=== PATIENT | male | born 1980 | race Caucasian/White ===

== ENCOUNTER 2016-12-31 13:19 | Emergency (ER) | payer OTHER ==
[~2016-12-31] VITALS: Ht 175.3 cm; Wt 67.9 kg
[2016-12-31 13:22] VITALS: TEMP 36.6; Ht 175.3 cm; Wt 67.9 kg
[2016-12-31] MEDS ORDERED: TRAZ50TA35 PO (13:45)
[2016-12-31 14:45] LABS: HEMATOCRIT 41.7 % (42-52); MEAN CELL VOLUME 87.1 fL (80-100); MEAN CORPUSCULAR HEMOGLOBIN 29.9 pg (25-34); MEAN CORPUSCULAR HGB CONC 34.3 g/dl (32-36); MEAN PLATELET VOLUME 9.9 fL (7.4-10.4); PLATELET COUNT 207 K/uL (130-400); RED BLOOD COUNT 4.79 M/uL (4.7-6.1); WHITE BLOOD COUNT 9.97 K/uL (4.8-10.8)
[2016-12-31 15:05] LABS: CALCIUM 9.1 mg/dl (8.5-10.1); CREATININE 0.8 mg/dl (0.60-1.40); POTASSIUM 3.8 mmol/L (3.5-5.1)
[2016-12-31 15:15] LABS: ACETAMINOPHEN < 2 ug/ml (10-30); ALB/GLOB RATIO 1.2 (0.9-2); THYROID STIMULATING HORMONE 1.05 uIu/ml (0.300-4.500)
--- NOTE | 2016-12-31 15:28 | EMERGENCY ROOM VISIT NOTE ---
History Report prepared by Nathalia: Steph Soriano Under the Supervision of: Dr. Gregg Etienne M.D. First contact with patient: 13:50 Chief Complaint: MENTAL HEALTH EVALUATION Stated Complaint: MR History of Present Illness The patient is a 36 year old male who presents to the Emergency Room with complaints of needing a mental health evaluation. Per his mother, he was released from group home three months ago for terroristic threats. She states that he has been making statements about being in a suicide pact and that someone is telling him to commit suicide. She states he asked her if he should shoot the people she went to college with. She states he has also not been eating or sleeping regularly. The patient states that he feels fine and totally healthy. He denies being in any pain and denies thinking about suicide. He states that he sleeps fine. The patient states that he takes medications to help him sleep. The mother states that this has happened before and that he was admitted to [place]. Source of History: patient, parent History Limited By: [facility] Position: other (global) Quality: other (mental evaluation) Note: Per the patient's mother, the patient has not been eating or sleeping, and he has been having suicidal thoughts. The patient denies any suicidal thoughts or pain. Review of Systems Unattainable given the mental state. Past Medical & Surgical Medical Problems: (1) Psychiatric hospitalization Family History No pertinent family history Social History Smoking Status: Current Every Day Smoker Housing Status: lives with family Current/Historical Medications Scheduled Trazodone Hcl (Trazodone), 50 MG PO DAILY Allergies Coded Allergies: No Known Allergies (Unverified , 12/31/16) Physical Exam Vital Signs Date Time Temp Pulse Resp B/P Pulse Ox O2 Delivery O2 Flow Rate FiO2 12/31/16 19:01 106 18 150/93 97 Room Air 12/31/16 13:22 36.6 86 20 122/69 95 Room Air Physical Exam GENERAL: Patient is in no acute distress. HEENT: No acute trauma, normocephalic atraumatic, mucous membranes moist, no nasal congestion, no scleral icterus. NECK: No stridor, no adenopathy, no meningismus, trachea is midline. LUNGS: Clear to auscultation bilaterally, no wheeze, no rhonchi, breath sounds equal. HEART: Without murmurs gallops or rubs, regular rate and rhythm. ABDOMEN: Soft, nontender, bowel sounds positive, no hernias, no peritonitis. EXTREMITIES: No cyanosis or edema, full range of motion of all the joints without pain or difficulty, no signs for acute trauma. NEUROLOGIC: No acute motor or sensory deficits, no focal weakness. SKIN: No rash, no jaundice, no diaphoresis. PSYCHIATRIC: Cooperative, seems slightly manic, rambled speech and thoughts, inability to focus, possible hallucinations Medical Decision & Procedures Laboratory Results 12/31/16 14:25 12/31/16 14:25 Test 12/31/16 14:25 12/31/16 14:48 Red Blood Count 4.79 M/uL (4.7-6.1) Mean Corpuscular Volume 87.1 fL (80-100) Mean Corpuscular Hemoglobin 29.9 pg (25-34) Mean Corpuscular Hemoglobin Concent 34.3 g/dl (32-36) RDW Standard Deviation 43.5 fL (36.4-46.3) RDW Coefficient of Variation 13.6 % (11.5-14.5) Mean Platelet Volume 9.9 fL (7.4-10.4) Anion Gap 6.0 mmol/L (3-11) Est Creatinine Clear Calc Drug Dose 121.4 ml/min Estimated GFR () 132.3 Estimated GFR (Non- 114.1 BUN/Creatinine Ratio 18.0 (10-20) Calcium Level 9.1 mg/dl (8.5-10.1) Total Bilirubin 0.5 mg/dl (0.2-1) Aspartate Amino Transf (AST/SGOT) 34 U/L (15-37) Alanine Aminotransferase (ALT/SGPT) 136 U/L (12-78) Alkaline Phosphatase 76 U/L (45-117) Total Protein 7.4 gm/dl (6.4-8.2) Albumin 4.1 gm/dl (3.4-5.0) Globulin 3.3 gm/dl (2.5-4.0) Albumin/Globulin Ratio 1.2 (0.9-2) Thyroid Stimulating Hormone (TSH) 1.050 uIu/ml (0.300-4.500) Salicylates Level 3.3 mg/dl (2.8-20) Acetaminophen Level < 2 ug/ml (10-30) Ethyl Alcohol mg/dL < 3.0 mg/dl (0-3) Urine Color YELLOW Urine Appearance CLEAR (CLEAR) Urine pH 6.5 (4.5-7.5) Urine Specific [place] 1.021 (1.000-1.030) Urine Protein NEG (NEG) Urine Glucose (UA) NEG (NEG) Urine Ketones NEG (NEG) Urine Occult Blood NEG (NEG) Urine Nitrite NEG (NEG) Urine Bilirubin NEG (NEG) Urine Urobilinogen NEG (NEG) Urine Leukocyte Esterase NEG (NEG) Urine Opiates Screen NEG (NEG) Urine Methadone, Qualitative NEG (NEG) Urine Barbiturates NEG (NEG) Urine Phencyclidine (PCP) Level NEG (NEG) Ur Amphetamine/Methamphetamine NEG (NEG) MDMA (Ecstasy) Screen POS (NEG) Urine Benzodiazepines Screen NEG (NEG) Urine Cocaine Metabolite NEG (NEG) Urine Marijuana (THC) NEG (NEG) Laboratory results reviewed by me. ED Course 1356: The patient was evaluated in room A7. A complete history and physical exam was performed. 1903: The patient will be transferred to [facility]. Medical Decision Differential Diagnoses include psychosis, medication noncompliance, suicidal ideation, drug and alcohol abuse, thyroid disorder There is no leukocytosis or concerning anemia. No significant electrolyte abnormality, kidney failure or hepatitis. The patient appears to be in a euthyroid state. Tox screens show possibly ecstasy. Urinalysis is negative for infection. Alcohol, Tylenol and aspirin levels are basically undetectable. The patient presents with psychosis. He is unable to have a coherent conversation. His behavior has been escalating for 2 weeks. He has had similar issues in the past. The patient was felt medically stable for a psychiatric evaluation. He was seen by the psychiatry services. The patient is being sent to [facility] for an involuntary, 302 admission. I did sign the medical portion of the 302 petition. The patient has been stable and cooperative during his ER stay. Impression Primary Impression: Psychosis Additional Impression: Suicidal ideation Scribe Attestation The scribe's documentation has been prepared under my direction and personally reviewed by me in its entirety. I confirm that the note above accurately reflects all work, treatment, procedures, and medical decision making performed by me. Departure Information Dispostion Transfer Acute Care Facility Referrals No Doctor, Assigned (PCP) Patient Instructions My [facility] Problem Qualifiers
[2016-12-31 15:37] LABS: URINE APPEARANCE CLEAR (CLEAR); URINE BILIRUBIN NEG (NEG); URINE COLOR YELLOW; URINE NITRITE NEG (NEG); URINE PH 6.5 (4.5-7.5); URINE SPECIFIC GRAVITY 1.021 (1.000-1.030); UROBILINOGEN NEG (NEG); ZZUR CULT IF INDIC CLEAN CATCH NO
[2016-12-31 15:44] LABS: MANUAL MICROSCOPIC REQUIRED? NO; REVIEW REQ? NO
[2016-12-31 16:00] LABS: BENZODIAZEPINE, URINE NEG (NEG); COCAINE,URINE NEG (NEG); PHENCYCLIDINE, URINE NEG (NEG)
[2016-12-31 20:39] VITALS: BP 136/86; PULSE 92; O2SAT 98
== END 2016-12-31 20:40 ==
LOC: C.EDB 13:21 → C.EDA 20:40
DX: F09 Unspecified mental disorder due to known physiological condition (principal); R45.851 Suicidal ideations; F17.200 Nicotine dependence, unspecified, uncomplicated

== ENCOUNTER 2017-01-19 16:05 | Emergency (ER) | payer OTHER ==
[~2017-01-19] VITALS: Ht 175.3 cm; Wt 69.1 kg
[~2017-01-19 16:05] MED LIST: TRAZ50TA35 PO
[2017-01-19 16:10] VITALS: TEMP 37; Ht 175.3 cm; Wt 69.1 kg
[2017-01-19] MEDS ORDERED: RISP2TAB22 PO (16:53)
[2017-01-19] MEDS ORDERED: DIVA500T59 PO (16:53)
[2017-01-19 16:55] LABS: HEMATOCRIT 43.4 % (42-52); MEAN CELL VOLUME 85.9 fL (80-100); MEAN CORPUSCULAR HEMOGLOBIN 28.9 pg (25-34); MEAN CORPUSCULAR HGB CONC 33.6 g/dl (32-36); MEAN PLATELET VOLUME 9.8 fL (7.4-10.4); PLATELET COUNT 150 K/uL (130-400); RED BLOOD COUNT 5.05 M/uL (4.7-6.1); WHITE BLOOD COUNT 10.49 K/uL (4.8-10.8)
[2017-01-19 17:05] LABS: URINE APPEARANCE CLEAR (CLEAR); URINE BILIRUBIN NEG (NEG); URINE COLOR DK YELLOW; URINE NITRITE NEG (NEG); URINE PH 5.5 (4.5-7.5); URINE SPECIFIC GRAVITY 1.031 (1.000-1.030); UROBILINOGEN NEG (NEG)
[2017-01-19 17:07] LABS: MANUAL MICROSCOPIC REQUIRED? NO; REVIEW REQ? NO
[2017-01-19 17:19] LABS: ACETAMINOPHEN < 2 ug/ml (10-30)
[2017-01-19 17:21] LABS: ALT/SGPT 91 U/L (12-78); AST/SGOT 54 U/L (15-37); BLOOD UREA NITROGEN 17 mg/dl (7-18); BUN/CREATININE RATIO 16.9 (10-20); CALCIUM 8.5 mg/dl (8.5-10.1); CARBON DIOXIDE 27 mmol/L (21-32); CHLORIDE 111 mmol/L (98-107); GLUCOSE 105 mg/dl (70-99); POTASSIUM 4.2 mmol/L (3.5-5.1); SODIUM 146 mmol/L (136-145)
--- NOTE | 2017-01-19 17:26 | EMERGENCY ROOM VISIT NOTE ---
History Report prepared by Nathalia: Yasmeen Malik Under the Supervision of: Dr. Destiny Gonzalez D.O. First contact with patient: 16:14 Chief Complaint: MENTAL HEALTH EVALUATION Stated Complaint: MENTAL HEALTH History of Present Illness The patient is a 36 year old male who presents to the Emergency Room for a mental health evaluation. The patient was recently admitted to [facility] for mental health. Per mother, he was discharged on January 12. Since then he has slowly stopped taking his medications. He has refused to take any medications since yesterday. He has become very manic, hyperverbal, and paranoid. The patient denies headache, blurry vision, chest pain, abdominal pain, and urinary symptoms. He denies any drug use. The history is limited due to the patient's AMS. 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 Past Medical & Surgical Medical Problems: (1) Psychiatric hospitalization (2) Suicidal ideation Family History No pertinent family history Social History Smoking Status: Unknown if Ever Smoked Drug Use: none Housing Status: lives with family Current/Historical Medications Scheduled Divalproex Sodium (Depakote), 500 MG PO TID Risperidone (Risperdal), 2 MG PO BID Trazodone Hcl (Trazodone), 50 MG PO HS Allergies Coded Allergies: No Known Allergies (Unverified , 01/19/17) Physical Exam Vital Signs Date Time Temp Pulse Resp B/P Pulse Ox O2 Delivery O2 Flow Rate FiO2 01/19/17 18:10 101 18 131/87 98 Room Air 01/19/17 16:10 37.0 121 20 130/84 94 Room Air Physical Exam General: Extremely hyperverbal, has difficulty with focusing. Appears extremely manic. HEENT: Head - normocephalic and atraumatic Pupils are equal, round, and reactive to light. Extraocular eye muscles are intact, and sclera are anicteric. Nose - moist nasal mucosa without discharge. Mouth - moist buccal mucosa. Oropharynx is nonerythematous and there is no tonsillar exudate or edema noted. Neck: Supple; no JVD, nuchal rigidity, cervical lymphadenopathy. Heart: Tachycardic rate and regular rhythm. There is a normal S1 and S2 with no murmurs, clicks, or gallops appreciated. Lungs: Clear to auscultation bilaterally with no wheezes, rales, or rhonchi. Abdomen: Soft, completely nontender, nondistended, with good bowel sounds. There are no palpable pulsatile masses or hepatosplenomegaly. There is no guarding, rigidity, or rebound noted. Extremities: No evidence of cyanosis, clubbing, or edema. There are easily palpable peripheral pulses. Skin: warm and dry with good turgor and no rashes. Psych: Could not focus on answering any significant questions except for orientation. Medical Decision & Procedures Laboratory Results 01/19/17 16:36 01/19/17 16:36 Test 01/19/17 16:25 01/19/17 16:36 Urine Color DK YELLOW Urine Appearance CLEAR (CLEAR) Urine pH 5.5 (4.5-7.5) Urine Specific [place] 1.031 (1.000-1.030) Urine Protein NEG (NEG) Urine Glucose (UA) NEG (NEG) Urine Ketones TRACE (NEG) Urine Occult Blood NEG (NEG) Urine Nitrite NEG (NEG) Urine Bilirubin NEG (NEG) Urine Urobilinogen NEG (NEG) Urine Leukocyte Esterase NEG (NEG) Urine Opiates Screen NEG (NEG) Urine Methadone, Qualitative NEG (NEG) Urine Barbiturates NEG (NEG) Urine Phencyclidine (PCP) Level NEG (NEG) Ur Amphetamine/Methamphetamine NEG (NEG) MDMA (Ecstasy) Screen POS (NEG) Urine Benzodiazepines Screen NEG (NEG) Urine Cocaine Metabolite NEG (NEG) Urine Marijuana (THC) NEG (NEG) Red Blood Count 5.05 M/uL (4.7-6.1) Mean Corpuscular Volume 85.9 fL (80-100) Mean Corpuscular Hemoglobin 28.9 pg (25-34) Mean Corpuscular Hemoglobin Concent 33.6 g/dl (32-36) RDW Standard Deviation 44.0 fL (36.4-46.3) RDW Coefficient of Variation 14.2 % (11.5-14.5) Mean Platelet Volume 9.8 fL (7.4-10.4) Anion Gap 8.0 mmol/L (3-11) Est Creatinine Clear Calc Drug Dose 98.9 ml/min Estimated GFR () 110.9 Estimated GFR (Non- 95.7 BUN/Creatinine Ratio 16.9 (10-20) Calcium Level 8.5 mg/dl (8.5-10.1) Total Bilirubin 0.3 mg/dl (0.2-1) Direct Bilirubin < 0.1 mg/dl (0-0.2) Aspartate Amino Transf (AST/SGOT) 54 U/L (15-37) Alanine Aminotransferase (ALT/SGPT) 91 U/L (12-78) Alkaline Phosphatase 74 U/L (45-117) Total Protein 6.9 gm/dl (6.4-8.2) Albumin 3.6 gm/dl (3.4-5.0) Thyroid Stimulating Hormone (TSH) 0.589 uIu/ml (0.300-4.500) Salicylates Level < 1.7 mg/dl (2.8-20) Acetaminophen Level < 2 ug/ml (10-30) Valproic Acid (Depakene) Level 56 mcg/ml (50-100) Ethyl Alcohol mg/dL < 3.0 mg/dl (0-3) Laboratory results per my review. ED Course 165: Past medical records reviewed. The patient was evaluated in room A6. A complete history and physical exam was performed. Labs were drawn as above. 1750: The patient is medically clear. [facility] will come and evaluate him. 1845: I signed a 302 petition and a bed search is under way. 190: I reassessed the patient. He is resting comfortably. A bed search is in progress. He has been referred to the [facility]. 2017: The patient has been accepted at [place]. [facility] will arrange transport. Medical Decision The patient is a 36 year old male who presents to the ED for a mental health evaluation. Differential diagnosis includes medication non-compliance, exacerbation of schizophrenia, acute psychosis. Laboratory results as stated below per my review: Normal white count, stable H&H, glucose 105, normal TSH, AST and ALT are just minimally elevated. Normal renal function, urinalysis was positive for ketones. Tylenol, aspirin, and alcohol levels are negative. Drug screen was positive for MDMA. Valproic acid level is 56. The patient presents to the ER with acute ty and psychosis. Had a recent inpatient hospital psychiatric stay at [facility]. Once he was discharged, he stopped taking his medications and has become psychotic again. The patient's mother was concerned for the safety of the patient. The patient has been talking excessively about guns in the . The patient has a history of schizophrenia. He will require inpatient psychiatric care. He has been accepted at the [facility]. Impression Primary Impression: Acute psychosis Scribe Attestation The scribe's documentation has been prepared under my direction and personally reviewed by me in its entirety. I confirm that the note above accurately reflects all work, treatment, procedures, and medical decision making performed by me. Departure Information Dispostion Mental Health Acute Care Referrals Chloé Hidalgo PA (PCP) Patient Instructions My [facility]
[2017-01-19 17:32] LABS: ALKALINE PHOSPHATASE 74 U/L (45-117); THYROID STIMULATING HORMONE 0.589 uIu/ml (0.300-4.500)
[2017-01-19 17:41] LABS: BENZODIAZEPINE, URINE NEG (NEG); COCAINE,URINE NEG (NEG); PHENCYCLIDINE, URINE NEG (NEG)
[2017-01-19 22:17] VITALS: BP 130/86; PULSE 96; O2SAT 98
== END 2017-01-19 22:25 ==
LOC: C.EDB 16:09 → C.EDA 22:25
DX: F23 Brief psychotic disorder (principal); F20.9 Schizophrenia, unspecified